=== PATIENT | female | born 1975 | race Caucasian/White ===

== ENCOUNTER → 2019-11-15 | Outpatient (CLI) | payer OTHER | LOC: LAB.O 09:20 | PROVIDERS: ATTEND Registered Nurse General Practice | DX: R53.82 Chronic fatigue, unspecified (principal); E03.8 Other specified hypothyroidism ==

== ENCOUNTER → 2020-02-22 | Outpatient (CLI) | payer OTHER ==
--- NOTE | 2020-02-22 08:50 | RAD ---
EXAM DESCRIPTION: Lumbar Spine 3 Views CLINICAL HISTORY: 45 years Female, M54.5 COMPARISON: None available. FINDINGS: The vertebral body heights are well-maintained with no acute compression deformity. The intervertebral disc spaces are well preserved. No evidence of spondylolysis or spondylolisthesis. Multilevel facet arthropathy is noted, worse at L5-S1 level. Constipation. IMPRESSION: Multilevel facet arthropathy is noted, worse at L5-S1 level. Constipation. Electronically signed by: Carmita Platt MD 02/22/2020 8:48 AM CDT
== END ==
LOC: RAD 08:09
PROVIDERS: ATTEND Anesthesiology
DX: M54.16 Radiculopathy, lumbar region (principal); M12.9 Arthropathy, unspecified; K59.00 Constipation, unspecified

== ENCOUNTER → 2020-02-22 | Outpatient (CLI) | payer OTHER ==
--- NOTE | 2020-02-25 15:52 | MAM ---
EXAM DESCRIPTION: 3D Screening BILATERAL : Digital Mammography. CLINICAL HISTORY: 45 years Female SCREENING . No complaints. No personal or family history of breast cancer. Menarche age 10. Childbirth age 24. Premenopausal. No HRT. Lifetime risk of developing breast cancer (Tyrer-Cuzick model)(%): 10.3. COMPARISON: Baseline study at this facility. No prior reports available. TECHNIQUE: Bilateral CC and MLO projection full-field images, digital tomosynthesis mammographic technique. Bilateral digital 2-D full-field MLO images. CAD available for 2-D images. FINDINGS: The breast parenchymal density pattern is: Scattered areas of fibroglandular density. No skin thickening or nipple retraction. No focal, stellate mass or density, focal asymmetry , and no suspicious microcalcifications bilaterally. IMPRESSION: No suspicious or significant imaging findings. BI-RADS CATEGORY: 1 - NEGATIVE RECOMMENDATIONS: FOLLOW UP: Routine digital bilateral screening, one year interval from date Written communication explaining the findings and follow-up, will be mailed to the patient and referring health care provider. The FINDINGS and the FOLLOW-UP plan were reviewed in person with the patient after the examination. According to the [employer], yearly mammograms are recommended starting at age 40 and continuing as long as a woman is in good health. Any breast change noted on a breast self-exam should be reported promptly to the patient's healthcare provider. Breast MRI is recommended for women with an approximately 20-25% or greater lifetime risk of breast cancer, including women with a strong family history of breast or ovarian cancer and women who have been treated for Hodgkin's disease. A negative mammographic report should not delay tissue diagnosis in patients with significant clinical history or physical findings. Extremely dense breast tissue limits the sensitivity of digital mammography. Electronically signed by: Geronimo Foote MD 02/25/2020 3:51 PM CDT
== END ==
LOC: MAMMO 08:00
PROVIDERS: ATTEND Registered Nurse General Practice
DX: Z12.31 Encounter for screening mammogram for malignant neoplasm of breast (principal)

== ENCOUNTER → 2020-08-04 | Outpatient (CLI) | payer OTHER | LOC: YCFC.O 06:57 | PROVIDERS: ATTEND Nurse Practitioner Family | DX: E03.9 Hypothyroidism, unspecified (principal); R53.82 Chronic fatigue, unspecified; E66.3 Overweight; E55.9 Vitamin D deficiency, unspecified; E53.8 Deficiency of other specified B group vitamins; N91.1 Secondary amenorrhea ==

== ENCOUNTER → 2020-10-23 | Outpatient (CLI) | payer BC, OTHER ==
--- NOTE | 2020-10-24 12:08 | MRI ---
EXAM DESCRIPTION: Cervical Spine: MRI. CLINICAL HISTORY: 45 years Female RADICULOPATHY COMPARISON: None. TECHNIQUE: Multiplanar, high-field MRI, multiple sequences, non-contrast Cervical spine. FINDINGS: C3-C4: Disc desiccation and minimal disc space loss. Mild erosion in the inferior C3 endplate. Mild hypertrophic arthrosis in the left facet. Mild left neural foraminal narrowing. Canal and right neuroforamen are patent. C5-C6: Minimal disc desiccation and disc space loss. Minimal posterior midline bulge. No evidence for an 8 spur. Mild right neural foraminal narrowing. Left neural foramen and canal are patent. Facet joints are unremarkable. C6-C7: Normal signal in the disc with minimal posterior bulge but not abutting the cord. Small uncinate spur on the left. Trace narrowing left neural foramen. Right neuroforamen is patent. Facet joints are unremarkable. Canal is patent. Normal signal in the C2-C3 disc, C4-C5 disc, C7-T1 disc, and T1-T2 disc with no bulging. Disc spaces preserved. Canal and neural foramina are patent. Facet joints are negative. Spinal alignment C4-C6 mild kyphosis. Overall normal lordosis is reduced.. No cord compression or cord edema. Atlantoaxial joint negative.. Base of the cerebellar tonsils is above the foramen magnum. Paravertebral soft tissues negative. Vertebral bodies are not compressed at any level. Otherwise normal marrow signal in the remaining vertebral bodies and the posterior elements. IMPRESSION: 1. Minimal disc desiccation and bulging at multiple levels. Uncinate spurs at several levels. Canal and neural foraminal narrowing. No significant narrowing or stenosis. No herniated discs. No significant facet arthrosis at any level. Electronically signed by: Geronimo Foote MD 10/24/2020 12:07 PM [facility]
--- NOTE | 2020-10-24 12:11 | RAD ---
EXAM DESCRIPTION: Knee,Left Complete: CR/DR/XR. CLINICAL HISTORY: 45 years FemaleKNEE PAIN COMPARISON: MRI scan of the cervical spine on the same visit. TECHNIQUE: 3-views AP and lateral. Patellar sunrise. image/side IMPRESSION: All 3 compartments are symmetric with no significant narrowing and no joint margin abnormalities. No soft tissue large joint effusion. No fracture. No abnormal radiodense objects in the soft tissues or joint spaces. Electronically signed by: Geronimo Foote MD 10/24/2020 12:10 PM [facility]
== END ==
LOC: MRI 14:08
PROVIDERS: ATTEND Anesthesiology
DX: M50.10 Cervical disc disorder with radiculopathy, unspecified cervical region (principal); M25.562 Pain in left knee